=== PATIENT | female | born 1980 | race Caucasian/White ===

== ENCOUNTER 2019-09-13 11:48 | Emergency (ER) | payer BC ==
[~2019-09-13] VITALS: Ht 162.6 cm; Wt 93.6 kg
--- NOTE | 2019-09-13 12:52 | NUR ---
Pt to 21 from lobby
[2019-09-13 12:59] LABS: BASOPHILS # (AUTO) 0.05 x10^3/uL (0-0.1); BASOPHILS % (AUTO) 1 % (0-1); EOSINOPHILS # (AUTO) 0.32 x10^3/uL (0-0.4); EOSINOPHILS % (AUTO) 5 % (1-7); LYMPHOCYTES # (AUTO) 1.66 x10^3/uL (1-3.4); LYMPHOCYTES % (AUTO) 23 % (22-44); MD NO; MEAN CORPUSCULAR HEMOGLOBIN 26.9 pg (27.0-34.8); MEAN CORPUSCULAR HGB CONC 32.1 g/dL (32.4-35.8); MEAN PLATELET VOLUME 8.1 fL (7.4-10.4); MONOCYTES % (AUTO) 6 % (2-9); NEUTROPHILS % (AUTO) 66 % (42-75); PLATELET COUNT 363 x10^3/uL (130-400); RED BLOOD COUNT 5.28 x10^6/uL (3.82-5.3); RED CELL DISTRIBUTION WIDTH 15.9 % (9.6-15.2)
--- NOTE | 2019-09-13 13:05 | NUR ---
FIRST CONTACT WITH PT. PT IS LMP 07/15/19 BLOOD SPOTING X 1 WEEK, CLOT PASSED 09/12. + TEST ABOUT 2 WEEKS AGO AND YESTERDAY. PT C/O ABD CRAMPING A LITTLE BIT. PT'S AOX4. RESPS EVEN AND UNLABORED. BP/SPO2 MONITORS IN PLACE. CALL LIGHT WITHIN REACH.
[2019-09-13 13:11] LABS: ALANINE AMINOTRANSFERASE 20 U/L (12-78); ALBUMIN 3.5 g/dL (3.4-5.0); ANION GAP 6 mmol/L (5-15); CALCIUM 8.9 mg/dL (8.5-10.1); CHLORIDE 108 mmol/L (98-107); CREATININE 0.68 mg/dL (0.55-1.02)
[2019-09-13 13:15] LABS: ALKALINE PHOSPHATASE 71 U/L (45-117); BILIRUBIN,TOTAL 0.3 mg/dL (0.2-1.0); TOTAL PROTEIN 7.8 g/dL (6.4-8.2)
--- NOTE | 2019-09-13 13:26 | NUR ---
PT AWARE OF UA AFTER US DONE. URINE CUP AT BEDSIDE AT THIS TIME.
--- NOTE | 2019-09-13 14:00 | NUR ---
PT PROVIDED URINE SAMPLE AT THIS TIME. UA SENT.
[2019-09-13 14:14] LABS: MICROSCOPIC AUTO
[2019-09-13 14:16] LABS: CULTURE INDICATED? NO
[2019-09-13 14:17] VITALS: BP 123/73
--- NOTE | 2019-09-13 14:57 | NUR ---
Patient given discharge instructions and they have confirmed that they understand the instructions. Patient ambulatory with steady gait.
== END 2019-09-13 14:59 | disposition home or self-care (01) ==
LOC: ED 14:50
DX: O03.9 Complete or unspecified spontaneous abortion without complication (principal)
CPT/HCPCS: 36415; 76801; 80053; 81001; 84702; 85025; 86901; 99284